=== PATIENT | female | born 1940 | race Two or more races ===

== ENCOUNTER → 2016-04-30 | Outpatient (CLI) | payer MEDICARE | END | disposition disaster alternative care site (69) | LOC: GRAD 04-19 11:00 | DX: I26.99 Other pulmonary embolism without acute cor pulmonale (principal); I51.7 Cardiomegaly; R91.8 Other nonspecific abnormal finding of lung field; R06.00 Dyspnea, unspecified; R09.89 Other specified symptoms and signs involving the circulatory and respiratory systems; Z98.890 Other specified postprocedural states | CPT/HCPCS: A9539; A9540 ==

== ENCOUNTER 2016-05-22 17:08 | Emergency (ER) | payer MEDICARE ==
--- NOTE | ~2016-05-22 | ER ---
PATIENT'S NAME: STEWART CARLIN [facility] AGE: 76 Y [address] ROOM: [place] [address] LOCATION: ED ADMIT DATE: 05/22/2016 ER/Outpatient Report DISCHARGE DATE: 05/22/2016 FAMILY PHYSICIAN: Peter Perea MD ATTENDING PHYSICIAN: Li Sesay Admission date and time documented in the medical record. I saw the patient when I came at shift change at 1810 hours. CHIEF COMPLAINT: Right nasal bleed. HISTORY OF PRESENT ILLNESS: The patient is a 76-year-old, who apparently has had some off and on right nasal bleeds over the past few days. Had one this afternoon and initially seen in [place]. Dr. Mccann was consulted and he had her come to [facility] here in [place], [place], for evaluation. Did ask the emergency department to see the patient initially. HOME MEDICATIONS: See attached medication list. ALLERGIES: 1. OCTREOTIDE. 2. DEMEROL. 3. LEVAQUIN. 4. MORPHINE. 5. CODEINE. 6. ULTRAM. 7. CELEBREX. 8. IBUPROFEN. 9. IVP DYE/CONTRAST. 10. NITROGLYCERIN. 11. AMBIEN. 12. ASPERCREME. 13. IRON. 14. IV DEXTRAN. SOCIAL HISTORY: Nonsmoker. Nondrinker. SIGNIFICANT PAST MEDICAL HISTORY: Dyslipidemia, hypothyroidism, atherosclerotic ischemic heart disease with coronary artery disease, congestive heart failure, recurrent nosebleeds, vascular malformation of the nose, frequent transfusions, and gastroesophageal PATIENT'S NAME: STEWART CARLIN [facility] AGE: 76 Y [address] ROOM: [place] [address] LOCATION: ED ADMIT DATE: 05/22/2016 ER/Outpatient Report DISCHARGE DATE: 05/22/2016 FAMILY PHYSICIAN: Peter Perea MD ATTENDING PHYSICIAN: Li Sesay reflux. REVIEW OF SYSTEMS: All systems reviewed by me are negative with the exception of those discussed in the history of present illness. PHYSICAL EXAMINATION: VITAL SIGNS: Temperature 97.7 tympanic, pulse 94, respirations 20, blood pressure 159/62, and O2 saturation on room air was 92%. EMERGENCY DEPARTMENT COURSE: The patient has a pack in the right naris. She was not having any bleeding from the anterior nose. Posterior pharynx was clear. No blood draining down the posterior pharynx. I did slowly pull the right nasal pack out. On examination, there was no active bleeding. There was some cautery, evidence of silver nitrate cautery in the right naris. Again, I did not see any active bleeding sites. I did discuss the patient with Dr. Mccann, ENT specialist. Dr. Mccann said he did not think he needed to come into the emergency room at this point since she is not bleeding. IMPRESSION: Right nasal bleed. PLAN: I did discuss my findings and recommendations with the patient. Dr. Mccann said that he would be on [place], if she needs she can see him tomorrow. I did discuss this with her. She is to continue her present home medications and care. Afrin 2 puffs in the right naris 4 times a day. Follow up with personal physician as needed. Follow up with Dr. Mccann if needed. MD HOLLY ZAMORA/modl /[id number] d: 05/23/16 0030 t: 05/25/16 0607, OUTPATIENT REPORT
== END 2016-05-22 18:18 | disposition disaster alternative care site (69) ==
LOC: GMED 17:08
DX: R04.0 Epistaxis (principal); E78.5 Hyperlipidemia, unspecified; E03.9 Hypothyroidism, unspecified; I25.10 Atherosclerotic heart disease of native coronary artery without angina pectoris; I50.9 Heart failure, unspecified; K21.9 Gastro-esophageal reflux disease without esophagitis; Z88.5 Allergy status to narcotic agent; Z88.8 Allergy status to other drugs, medicaments and biological substances; Z91.041 Radiographic dye allergy status; Z88.6 Allergy status to analgesic agent; Z79.899 Other long term (current) drug therapy
CPT/HCPCS: A9270